=== PATIENT | male | born 1970 | race Caucasian/White ===

== ENCOUNTER 2017-01-24 15:44 | Emergency (ER) | payer OTHER ==
[~2017-01-24] VITALS: Ht 180.3 cm; Wt 104.8 kg
[2017-01-24 15:57] VITALS: BP 135/82
== END 2017-01-24 16:33 | disposition home or self-care (01) ==
LOC: ED 15:44
DX: H66.91 Otitis media, unspecified, right ear (principal); J03.90 Acute tonsillitis, unspecified
CPT/HCPCS: J1100

== ENCOUNTER 2019-01-28 21:27 | Emergency (ER) | payer OTHER ==
[~2019-01-28] VITALS: Ht 180.3 cm; Wt 108.4 kg
[2019-01-28 21:32] VITALS: Ht 180.3 cm; Wt 108.4 kg
[2019-01-28 23:22] VITALS: BP 179/105
== END 2019-01-28 23:22 | disposition home or self-care (01) ==
LOC: ED 21:27
DX: S60.562A Insect bite (nonvenomous) of left hand, initial encounter (principal); I10 Essential (primary) hypertension; W57.XXXA Bitten or stung by nonvenomous insect and other nonvenomous arthropods, initial encounter; Y93.89 Activity, other specified; Y92.89 Other specified places as the place of occurrence of the external cause; Y99.8 Other external cause status
CPT/HCPCS: Q0163